=== PATIENT | female | born 1965 | race Caucasian/White ===

== ENCOUNTER 2023-07-27 06:46 | Emergency (ER) | payer SELFPAY ==
[~2023-07-27] VITALS: Ht 165.1 cm; Wt 60.0 kg
[2023-07-27 06:51] VITALS: TEMP 98.5; O2SAT 100
[2023-07-27] MEDS ORDERED: IBUP-2029 MT (08:22)
[2023-07-27] MEDS ORDERED: METOCLOPRAMIDE HCL 10MG/2ML VIAL IM ONE (08:30)
[2023-07-27] MEDS ORDERED: DIPHENHYDRAMINE 50MG/ML VIAL IM ONE (08:30)
[2023-07-27] MEDS ORDERED: KETOROLAC 30MG/ML VIAL IM ONE (08:30)
[2023-07-27 09:12] VITALS: BP 125/76; PULSE 116; RESP 16
== END 2023-07-27 09:14 | disposition home or self-care (01) ==
LOC: ER 06:46
DX: G43.909 Migraine, unspecified, not intractable, without status migrainosus (principal); Z85.9 Personal history of malignant neoplasm, unspecified; Z86.73 Personal history of transient ischemic attack (TIA), and cerebral infarction without residual deficits
CPT/HCPCS: 96372; 99284; J1200; J1885; J2765; Z7610